=== PATIENT | female | born 1985 ===

== ENCOUNTER 2017-03-23 00:06 | Emergency (ER) | payer BC, MEDICAID ==
[2017-03-23 00:07] VITALS: BMI 23.5
[2017-03-23 00:17] VITALS: BP 141/94; PULSE 60; RESP 17; TEMP 97.8; O2SAT 99
--- NOTE | 2017-03-23 00:55 | C.PDOC ---
History Of Present Illness 31 year old female who presents to the ER with a complaint of generalized body aches and a pressure headache she states radiates to the right facial area, dry cough, chest congestion, and intermittent SOB. Patient has a Hx of asthma; she states she ran out of her albuterol and is requesting a refill. Denies fever, chills, or chest pain. Time Seen by Provider: 03/23/17 00:22 Chief Complaint (Nursing): ENT Problem History Per: Patient History/Exam Limitations: no limitations Onset/Duration Of Symptoms: Days Current Symptoms Are (Timing): Still Present Location Of Pain: Headache Associated Symptoms: Cough. denies: Fever, Chills Ear Symptoms: Bilateral: None Recent travel outside of the [place]: No Past Medical History Reviewed: Historical Data, Nursing Documentation, Vital Signs Vital Signs: Last Vital Signs Temp 97.8 F 03/23/17 00:12 Pulse 60 03/23/17 00:12 Resp 17 03/23/17 00:12 BP 141/94 H 03/23/17 00:12 Pulse Ox 99 03/23/17 01:01 - Medical History PMH: Anxiety, Asthma, Depression, Gastritis, HTN - [facility] Procedures ESOPHAGOGASTRODUODENOSCOPY [EGD] W/CLOSED BIOPSY (02/07/15) Family History: States: [place], Diabetes, Hypertension - Social History Hx Tobacco Use: No Hx Alcohol Use: Yes Hx Substance Use: No - Immunization History Hx Tetanus Toxoid Vaccination: No Hx Influenza Vaccination: No Hx Pneumococcal Vaccination: No Review Of Systems Constitutional: Negative for: Fever, Chills Cardiovascular: Negative for: Chest Pain Respiratory: Positive for: Cough, Shortness of Breath, Other (Chest congestion) Physical Exam - Physical Exam Appears: Non-toxic Skin: Normal Color, Warm, Dry Head: Atraumatic, Normacephalic Eye(s): bilateral: Normal Inspection, PERRL, EOMI Ear(s): Bilateral: Normal Oral Mucosa: Moist Neck: Normal, Supple Chest: Symmetrical, No Tenderness Cardiovascular: Rhythm Regular, No Murmur Respiratory: Normal Breath Sounds, No Rales, No Rhonchi, No Wheezing Gastrointestinal/Abdominal: Soft, No Tenderness Neurological/Psych: Oriented x3, Normal Speech, Normal Cognition ED Course And Treatment O2 Sat by Pulse Oximetry: 99 (Room air) Pulse Ox Interpretation: Normal Progress Note: Motrin administered. Patient is resting comfortably, and is in no acute distress. Patient given RX and was instructed to follow up with PMD in 1-2 days for further evaluation. Disposition - Disposition Referrals: Non [facility] Provider, [Primary Care Provider] - Disposition: HOME/ ROUTINE Disposition Time: 00:51 Condition: STABLE Additional Instructions: Please follow up with PMD or in clinic Take all meds as prescribed High fiber diet / stool softeners OTC Increase PO fluids Return to ER if worse Prescriptions: Albuterol HFA [Ventolin HFA 90 mcg/actuation (8 g)] 2 puff IH [id number] #1 inhaler Cetirizine HCl [Zyrtec] 10 mg PO DAILY #20 capsule Ibuprofen [Motrin] 600 mg PO Q6H #20 tab Instructions: Allergies (ED), Musculoskeletal Pain (ED) - Clinical Impression Clinical Impression: Upper respiratory infection, Sinus headache, Musculoskeletal pain - Scribe Statement The provider has reviewed the documentation as recorded by the Scribgladis Peterson All medical record entries made by the Lolyibgladis were at my direction and personally dictated by me. I have reviewed the chart and agree that the record accurately reflects my personal performance of the history, physical exam, medical decision making, and the department course for this patient. I have also personally directed, reviewed, and agree with the discharge instructions and disposition.
== END 2017-03-23 01:04 | disposition home or self-care (01) ==
LOC: C.ER 00:06 → SUPCPDRO 00:06 → C.ER 01:04
DX: J06.9 Acute upper respiratory infection, unspecified (principal); R51 Headache; M79.1 Myalgia